=== PATIENT | female | born 1970 | race Caucasian/White ===

== ENCOUNTER 2018-12-29 01:40 | Emergency (ER) | payer OTHER ==
[~2018-12-29] VITALS: Ht 157.5 cm; Wt 64.1 kg
[2018-12-29 02:31] LABS: CULTURE INDICATED? YES; MICROSCOPIC INDICATED
--- NOTE | 2018-12-29 03:22 | NUR ---
pt d/c with d/c summary and scripts. all questions answered. pt ambulates to registration desk with steady gait for d/c home. pt denies any other needs pertaining to this visit.
[2018-12-29 03:24] VITALS: BP 103/68
== END 2018-12-29 03:27 | disposition home or self-care (01) ==
LOC: ED 03:16
DX: N30.01 Acute cystitis with hematuria (principal); Z98.890 Other specified postprocedural states; Z98.51 Tubal ligation status
CPT/HCPCS: 81001; 87077; 87086; 87186; 99283